=== PATIENT | male | born 1995 | race Caucasian/White ===

== ENCOUNTER 2016-12-24 12:10 | Emergency (ER) | payer OTHER ==
--- NOTE | 2016-12-24 15:16 | XRay Report ---
RIGHT TIBIA/FIBULA: History: Injury, swelling AP and lateral views of the right tibia/fibula demonstrate normal mineralization and contours for this patient's age. No fracture or bone lesion. Soft tissue swelling and complex anterior soft tissue injury or wound is suspected. IMPRESSION: Soft tissue findings as described. No bony abnormality.
[2016-12-24 20:23] VITALS: BP 134/68
--- NOTE | 2016-12-24 21:07 | Emergency Department Report ---
HPI - General Chief Complaint: Wound/Laceration Time Seen by Provider: 12/24/16 20:47 - HPI HPI: [place] 5 The patient is a 21-year-old male presenting with a chief complaint of right lower extremity infection. The patient states he believes he struck his right sherman on a 2 x 6 approximately 1.5 weeks ago. The patient states he does not believe the piece of wood splintered. The patient states he applied aloe vera to the leg and he noticed the development of a blister over his sherman. The patient states possible 2 days ago the blister popped and the pain improved but he noticed blood draining from the blister. The patient states she came to the hospital to have his leg evaluated. Patient denies any history of fever. Location: Right sherman Duration: [see above] Quality: Erythematous Severity: Mild Modifying factors: [see above] Context: [see above] Mode of transportation: [not driving] ED Past Medical Hx - Past Medical History Previous Medical History?: No - Surgical History Past Surgical History?: No - Family History Family history: no significant - Social History Smoking Status: Current Every Day Smoker Substance Use Type: Alcohol (daily) - Medications Home Medications: Home Medications Medication Instructions Recorded Confirmed Last Taken Type Ciprofloxacin HCl [Ciprofloxacin 500 mg PO Q12HR #20 tab 12/24/16 Unknown Rx TAB] HYDROcodone/APAP 5-325 [Sully 1 - 2 each PO Q6HR PRN #14 tablet 12/24/16 Unknown Rx 5/325] Ibuprofen [Motrin 800 MG tab] 800 mg PO Q8HR PRN #20 tablet 12/24/16 Unknown Rx Sulfamethoxazole/Trimethoprim 1 each PO BID #20 tablet 12/24/16 Unknown Rx [Bactrim DS TAB] ED Review of Systems ROS: Stated complaint: INFECTION ON LEG Other details as noted in HPI Comment: All other systems reviewed and negative Constitutional: denies: chills, fever Eyes: denies: eye pain, eye discharge, vision change ENT: denies: ear pain, throat pain Respiratory: denies: cough, shortness of breath, wheezing Cardiovascular: denies: chest pain, palpitations Endocrine: no symptoms reported Gastrointestinal: denies: abdominal pain, nausea, diarrhea Genitourinary: denies: urgency, dysuria Musculoskeletal: denies: back pain, joint swelling, arthralgia Skin: lesions (right sherman) Neurological: denies: headache, weakness, paresthesias Psychiatric: denies: anxiety, depression Hematological/Lymphatic: denies: easy bleeding, easy bruising Physical Exam - Physical Exam Vital Signs: Vital Signs 12/24/16 12/24/16 12/24/16 13:18 20:21 20:58 Temperature 98.5 F 98.2 F Pulse Rate 89 72 Respiratory 18 18 18 Rate Blood Pressure 148/97 Blood Pressure 134/68 [Left] O2 Sat by Pulse 100 100 100 Oximetry Physical Exam: GENERAL: The patient is well-developed well-nourished male lying on stretcher listening to music not appearing to be in acute distress. [] HEENT: Normocephalic. Atraumatic. Extraocular motions are intact. Patient has moist mucous membranes. NECK: Supple. Trachea midline CHEST/LUNGS: There is no respiratory distress noted. ABDOMEN: Abdomen is soft, nontender. Patient has normal bowel sounds. There is no abdominal distention. SKIN: There is an approximate 6 cm oval shaped ruptured blister overlying the right anterior sherman. I'm able to express purulent and sanguinous discharge from underneath this blister by palpation. There is a surrounding region of erythema consistent with cellulitis. There is no foul odor appreciated NEURO: The patient is awake, alert, and oriented. The patient is cooperative. The patient has normal speech MUSCULOSKELETAL: There is no evidence of acute injury. ED Course Vital Signs 12/24/16 12/24/16 12/24/16 13:18 20:21 20:58 Temperature 98.5 F 98.2 F Pulse Rate 89 72 Respiratory 18 18 18 Rate Blood Pressure 148/97 Blood Pressure 134/68 [Left] O2 Sat by Pulse 100 100 100 Oximetry ED Medical Decision Making - Lab Data Result diagrams: 12/24/16 21:37 12/24/16 21:37 Laboratory Tests 12/24/16 12/24/16 21:37 21:37 WBC 7.6 RBC 5.39 H Hgb 16.1 H Hct 48.0 H MCV 89 MCH 30 MCHC 34 RDW 12.8 L Plt Count 392 Lymph % (Auto) 21.4 [place] % (Auto) 7.3 Eos % (Auto) 2.0 Baso % (Auto) 0.7 Lymph # 1.6 [place] # 0.6 Eos # 0.2 Baso # 0.1 Seg Neutrophils % 68.6 Seg Neutrophils # 5.2 Sodium 139 Potassium 4.2 Chloride 97.9 L Carbon Dioxide 30 Anion Gap 15 BUN 12 Creatinine 0.9 Estimated GFR > 60 BUN/Creatinine Ratio 13.33 Glucose 81 Calcium 9.1 - Radiology Data Radiology results: image reviewed (right tib-fib x-ray) interpreted by me: Right tib-fib x-ray-no acute fracture, no foreign body seen. No bony abnormality seen - Medical Decision Making Patient has no history of diabetes or other immunocompromise state. Patient is afebrile with normal vital signs and normal white count. Given these findings I think it is warranted to at least give the patient a trial of antibiotics as an outpatient. Patient given strong warning should the erythema/cellulitis worsened despite therapy he should return to the emergency department immediately for admission to the hospital for failure of outpatient therapy - Differential Diagnosis cellulitis Critical care attestation.: If time is entered above; I have spent that time in minutes in the direct care of this critically ill patient, excluding procedure time. ED Disposition Clinical Impression: Cellulitis of right lower extremity Disposition: DISCHARGED TO HOME OR SELFCARE Is pt being admited?: No Does the pt Need Aspirin: No Condition: Stable Instructions: Cellulitis (ED) Additional Instructions: Return to the emergency department immediately should you develop worsening symptoms, fever, inability to tolerate food or liquid or any other concerns. Prescriptions: Ciprofloxacin HCl [Ciprofloxacin TAB] 500 mg PO Q12HR #20 tab HYDROcodone/APAP 5-325 [[place] 5/325] 1 - 2 each PO Q6HR PRN #14 tablet PRN Reason: Pain Ibuprofen [Motrin 800 MG tab] 800 mg PO Q8HR PRN #20 tablet PRN Reason: Pain Sulfamethoxazole/Trimethoprim [Bactrim DS TAB] 1 each PO BID #20 tablet Referrals: PRIMARY CARE, [Primary Care Provider] - 3-5 Days [facility] [Outside] - 3-5 Days Time of Disposition: 22:40
[2016-12-24] MEDS: LEVAQUIN PO ONE (21:47)
[2016-12-24] MEDS: BACTRIM DS PO ONE (21:47)
[2016-12-24 22:15] LABS: Basophils % (Auto) 0.7 % (0.0-1.8); Hemoglobin 16.1 gm/dl (11.8-15.2); Mean Corpuscular HGB Conc 34 % (32-34); Mean Corpuscular Hemoglobin 30 pg (28-32); Mean Corpuscular Volume 89 fl (84-94); Platelet Count 392 K/mm3 (140-440); Red Blood Count 5.39 M/mm3 (3.65-5.03); Red Cell Distribution Width 12.8 % (13.2-15.2); White Blood Count 7.6 K/mm3 (4.5-11.0)
[2016-12-24 22:30] LABS: Anion Gap 15 mmol/L; BUN/Creatinine Ratio 13.33; Blood Urea Nitrogen 12 mg/dL (9-20); Calcium 9.1 mg/dL (8.4-10.2); Carbon Dioxide 30 mmol/L (22-30); Chloride 97.9 mmol/L (98-107); Glucose 81 mg/dL (75-100); Potassium 4.2 mmol/L (3.6-5.0); Sodium 139 mmol/L (137-145)
== END 2016-12-24 22:57 | disposition home or self-care (01) ==
LOC: ED 12:10
DX: L03.115 Cellulitis of right lower limb (principal); F17.200 Nicotine dependence, unspecified, uncomplicated
CPT/HCPCS: 36415; 80048; 85025; 87040; 87076; 87116; 87186; 99284